=== PATIENT | male | born 1990 | race African-American/Black ===

== ENCOUNTER 2016-11-12 15:11 | Emergency (ER) | payer MEDICAID ==
[2016-11-12] MEDS ORDERED: CEFTRIAXONE 500 MG VIAL ONE (16:05)
[2016-11-12] MEDS ORDERED: AZITHROMYCIN 250 MG TAB ONE (16:05)
[2016-11-12] MEDS ORDERED: LIDOCAINE 1% MDV 20 ML ONE (16:05)
== END 2016-11-12 17:00 | disposition home or self-care (01) ==
LOC: FASTR 15:11
DX: R30.0 Dysuria (principal); R36.9 Urethral discharge, unspecified; Z20.2 Contact with and (suspected) exposure to infections with a predominantly sexual mode of transmission; F17.210 Nicotine dependence, cigarettes, uncomplicated
CPT/HCPCS: 81001; 87088; 87491; 87591; 96372